=== PATIENT | female | born 1990 | race Caucasian/White ===

== ENCOUNTER → 2016-12-02 | Outpatient (CLI) | payer OTHER ==
[~2016-12-02] MED LIST: ETON1VAG; ETON1VAG VG
== END | disposition home or self-care (01) ==
LOC: CFH 06:55 → MERGE 07:30
PROVIDERS: ATTEND Family Medicine
DX: N60.02 Solitary cyst of left breast (principal); N63 Unspecified lump in breast; Z80.3 Family history of malignant neoplasm of breast